=== PATIENT | male | born 1960 | race Caucasian/White ===

== ENCOUNTER 2018-05-03 12:40 | Day surgery (SDC) | payer MEDICAID ==
[~2018-05-03] VITALS: Ht 180.3 cm; Wt 125.2 kg
[~2018-05-03 12:40] MED LIST: KEPP1TAB2 PO; MULT1TAB10 PO; OMEP40CA2 PO; PAXI40TA10 PO; PROP10TA56 PO; TYLE650T35 PO; VITA100067 PO; VITA100T20 PO; VITA500T PO
[2018-05-03] MEDS ORDERED: LIDOCAINE 2% INJ 100 MG/5 ML SDV (FOR ANES.) As Ordered ONE (13:51)
[2018-05-03] MEDS ORDERED: PROPOFOL 200 MG/20 ML VIAL As Ordered ONE (13:51)
--- NOTE | 2018-05-03 14:53 | ROOR ---
Patient Name: Julio C Degroot Procedure Date: 05/03/2018 2:32 PM Date of : 1960 Age: 57 Room: [facility] Gender: Male Note Status: Finalized Procedure: Upper GI endoscopy Indications: Dysphagia, Abnormal cine-esophagram Providers: Quincy CLAY MD Referring MD: Imelda Zheng MD Requesting Provider: Medicines: Monitored Anesthesia Care Complications: No immediate complications. Procedure: Pre-Anesthesia Assessment: - The heart rate, respiratory rate, oxygen saturations, blood pressure, adequacy of pulmonary ventilation, and response to care were monitored throughout the procedure. The Endoscope was introduced through the mouth, and advanced to the jejunum. The upper GI endoscopy was accomplished without difficulty. The patient tolerated the procedure well. Findings: The examined esophagus was normal. 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 The gastrojejunal anastomosis was characterized by healthy appearing mucosa. This was traversed. Small Hiatal Hernia. The exam of the stomach was otherwise normal. The examined jejunum was normal. Impression: - Normal esophagus. - Small Hiatal Hernia with Z line at 35 cm from incisors. - Grecia-en-Y gastrojejunostomy with gastrojejunal anastomosis characterized by healthy appearing mucosa. - Normal examined jejunum. (- No stricture or significant abnormality is seen in the esophagus) - No specimens collected. Recommendation: - Chew food well before swallowing. The poor health of your teeth likely cotributes to inadequate chewing and swallowing difficulties. Consider dental evaluation. - Return to referring physician as previously scheduled. - Continue present medications. Quincy Clay MD Quincy CLAY MD 05/03/2018 2:53:02 PM This report has been signed electronically. Number of Addenda: 0 Note Initiated On: 05/03/2018 2:32 PM Estimated Blood Loss: Estimated blood loss: none.
[2018-05-03 15:10] VITALS: BP 117/67
== END 2018-05-03 15:18 | disposition home or self-care (01) ==
LOC: M OPP 12:40
PROVIDERS: ATTEND Internal Medicine Gastroenterology
DX: R13.10 Dysphagia, unspecified (principal); R93.3 Abnormal findings on diagnostic imaging of other parts of digestive tract; K44.9 Diaphragmatic hernia without obstruction or gangrene; Z98.0 Intestinal bypass and anastomosis status